=== PATIENT | male | born 1990 | race Caucasian/White ===

== ENCOUNTER → 2020-04-08 | Emergency (ER) | payer OTHER ==
[~2020-04-08] VITALS: Ht 175.3 cm; Wt 93.0 kg
[~2020-04-08] MED LIST: LIDOCAINE 1% HCL (LOCAL ANESTH.) INJ 20ML MDV IJ ONE; TETANUS-DIPTH-ACEL PERTUSSIS 0.5ML SYR Tdap IM ONE; cefTRIAXone SOD 1,000 MG VL IM ONE
[2020-04-08 15:48] VITALS: BP 129/93
== END | disposition home or self-care (01) ==
LOC: ER 15:23
DX: S51.851A Open bite of right forearm, initial encounter (principal); S51.831A Puncture wound without foreign body of right forearm, initial encounter; W54.0XXA Bitten by dog, initial encounter; Y93.89 Activity, other specified; Y92.098 Other place in other non-institutional residence as the place of occurrence of the external cause; Y99.8 Other external cause status
CPT/HCPCS: 12002; 90471; 90715; 96372; 99284; J0696; J2001

== ENCOUNTER 2022-02-12 20:03 | Emergency (ER) | payer OTHER ==
[~2022-02-12] VITALS: Ht 175.3 cm; Wt 93.0 kg
[2022-02-13] MEDS ORDERED: OXYCODONE W/ ACETAMINOPHEN 5/325MG TABLET PO ONE (01:45)
[2022-02-13] MEDS ORDERED: PERCOT PO (02:02)
[2022-02-13 02:16] VITALS: BP 141/78
== END 2022-02-13 02:36 | disposition home or self-care (01) ==
LOC: ER 20:07
DX: S52.124A Nondisplaced fracture of head of right radius, initial encounter for closed fracture (principal); V00.131A Fall from skateboard, initial encounter; Y93.51 Activity, roller skating (inline) and skateboarding; Y92.89 Other specified places as the place of occurrence of the external cause; Y99.8 Other external cause status
CPT/HCPCS: 29105; 73080; 73110